=== PATIENT | male | born 1965 | race Caucasian/White ===

== ENCOUNTER 2021-03-03 11:12 | Emergency (ER) | payer BC, OTHER ==
--- OUTSIDE RECORDS SUMMARY | 2021-03-03 11:14 | XMS REPORT | Continuity of Care Document ---
:1965 Author Organization [facility] t Address [address] [place] [address] Care Team Providers Name Role Phone Unknown Attending Clinician Unavailable Ryan Dumont Attending Clinician Problems Condition Condition Condition Status Onset Resolution Last Treating Co mments Source Name Details Category Date Date Treatment Clinician Date Asthma Problem Active 2020-07-20 Memor ia (disorder) 21:20:07 l Asthma Ed (disorder) Active Problem 07/20/2020 [facility] Cervical Problem Active 2020-07-20 Mem oria radiculopa 21:20:07 l thy Cervical Reji n (disorder) radiculopa thy (disorder) Active Problem 07/20/2020 [facility] Hyperlipid Problem Active 2020-07-20 M emoria emia 21:20:07 l (disorder) Reji n Hyperlipid emia (disorder) Active Problem 07/20/2020 [facility] Hypertensi Problem Active 2020-07-20 M emoria ve 21:20:07 l disorder, [place] systemic Hypertensi arterial ve (disorder) disorder, systemic arterial (disorder) Active Problem 07/20/2020 [facility] Hypothyroi Problem Active 2020-07-20 M emoria dism 21:20:07 l (disorder) Reji n Hypothyroi dism (disorder) Active Problem 07/20/2020 [facility] 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) Active Problem 07/20/2020 [facility] Lumbar Problem Active 2020-07-20 Memor ia radiculopa 21:20:07 l thy Lumbar [place] (disorder) radiculopa thy (disorder) Active Problem 07/20/2020 [facility] Paresthesi Problem Active 2020-07-20 M emoria a 21:20:07 l (finding) Ed Paresthesi a (finding) Active Problem 07/20/2020 [facility] 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 Social History Social Habit Start Date Stop Date Quantity Comments Source Social History 2020-04-09 2020-04-09 [facility] 16:44:07 16:44:07 Medications Ordered Filled Start Stop Current Ordering Indication Dosage Frequency Signature Comments Components Source Medication Medication Date Date Medication? Clinician (SIG) Name Name gabapentin Yes 300 mg = 1 M emoria 300 MG Oral 8-14 cap, PO, l Capsule 16:18: BID, # 60 Julia nn 00 cap, 3 Refill(s), Pharmacy: [id number], 165.1, cm, 04/09/20 11:31:00 CDT, Height, 72.273, kg, 04/09/20 11:31:00 CDT, Weight Advil Yes 800 mg, Memoria 7-08 PO, TID, 0 l 16:31: Refill(s) atorvastati No 80 mg, PO, Memoria n 7-08 Daily, 0 l 15:52: Refill(s) Hydrochloro 2019- Yes 25 mg, PO, Memoria thiazide 7-08 Daily, 0 l 15:52: Refill(s) Losartan 2019- Yes See Memoria 7-08 Instructio l 15:52: ns, losartan / potassium 100 mg PO Daily, 0 Refill(s) Thyroxine Yes 50 Memoria 7-08 microgram, l 15:52: PO, Daily, 0 Refill(s) Ranitidine Yes 150 mg = 1 M emoria 150 MG Oral 04-09 cap, PO, l Capsule 15:52: PRN, 0 00 Refill(s) CoQ10 2019-0 No PO, Daily, Memori a 04-09 0 l 15:52: Refill(s) [place] 00 Aspirin Yes 81 mg, PO, [place] roland 7-08 Daily, 0 l 15:52: Refill(s) Ed 00 meloxicam No 15 mg, PO, Me moria 7-08 Daily, 0 l 15:52: Refill(s) Ed 00 Vital Signs Vital Name Observation Time Observation Value Comments Source Systolic (mm Hg) 2020-05-28 18:14:00 [facility] rial Ed Diastolic (mm Hg) 2020-05-28 18:14:00 Mem orial [place] Heart Rate 2020-05-28 18:14:00 [facility] Respitory Rate 2020-05-28 18:14:00 Memori al [place] Height 2020-05-28 18:14:00 167.64 cm [facility] [place] Weight 2020-05-28 18:14:00 [facility] [place] BMI Calculated 2020-05-28 18:14:00 Memori al [place] Systolic (mm Hg) 2020-04-09 16:20:00 [facility] rial [place] Diastolic (mm Hg) 2020-04-09 16:20:00 Mem orial Ed Heart Rate 2020-04-09 16:20:00 [facility] [place] Respitory Rate 2020-04-09 16:20:00 Memori al [place] Temperature Oral (F) 2020-04-09 16:20:00 98.3 F [facility] Height 2020-04-09 16:20:00 165.1 cm [facility] [place] Weight 2020-04-09 16:20:00 [facility] [place] BMI Calculated 2020-04-09 16:20:00 Memori al Ed Procedures This patient has no known procedures. Encounters Start End Encounter Admission Attending Care Care Encounter Source Date/Time Date/Time Type Type Clinicians Facility Department ID 2020-10-28 2020-10-28 Hospital Unknown, [facility] [id number] 16:00:00 23:59:00 Encounter Attending Christina [id number] [place] [id number] [facility] [id number] 2020-07-18 2020-07-18 Outpatient Julia, MISCHER MHMISCHER [id number] 09:45:00 09:45:00 Kevin 04 Ryan 2020-05-28 2020-05-28 Outpatient NAYE DumontMISCHER MHMISCHER [id number] 13:00:00 23:59:59 Kevin 03 Ryan 2020-04-09 2020-04-09 Outpatient Julia MHMISCHER MHMISCHER [id number] 10:45:00 23:59:59 Kevin 02 Ryan 2020-04-09 2020-04-09 Outpatient Julia, MISCHER MHMISCHER [id number] 10:45:00 10:45:00 Kevin 00 Ryan 2020-04-09 2020-04-09 Outpatient Julia, MISCHER MHMISCHER [id number] 10:45:00 10:45:00 Kevin Ryan Results This patient has no known results.
[2021-03-03] MEDS ORDERED: LORazepam 2 MG/ML VIAL ONE (17:43)
[2021-03-03] MEDS ORDERED: NA CHLORIDE 0.9% 500 ML ONE (17:44)
--- NOTE | 2021-03-03 18:10 | RAD REPORT ---
EXAM DESCRIPTION: CT - Head Brain Wo Cont - 03/03/2021 5:53 pm CLINICAL HISTORY: tremor COMPARISON: No comparisons TECHNIQUE: Axial 5 mm thick images of the head were obtained without IV contrast. All CT scans are performed using dose optimization technique as appropriate and may include automated exposure control or mA/KV adjustment according to patient size. FINDINGS: No intracranial hemorrhage, mass, edema or shift of mid-line structures. No acute infarcti on changes seen. No abnormal extra-axial fluid collections. Volume loss changes are evident greater t leiva expected for a patient this age. Ventricles are in proportion to the volume loss. Patient has a n ormal variant cavum vergae anomaly. Mastoid air cells are clear. Mucosal thickening is seen in the paranasal sinuses with no air-fluid le river seen. Right deviation the nasal septum present. No acute bony findings. IMPRESSION: No acute intracranial finding identifiable. Patient does show evidence for volume loss in the cerebral and cerebellar hemispheres greater than ex pected for a patient this age.
[2021-03-03 18:14] LABS: Absolute Lymphocytes (CBC) 0.3 K/uL (0.7-4.9); Basophils % 0.2 % (0-1.3); Hematocrit 45.4 % (39.6-49.0); MPV 8.8 fL (7.6-11.3); RBC Red Blood Cell Count 4.57 M/uL (4.33-5.43)
[2021-03-03 18:30] LABS: Protime INR 1.09
[2021-03-03] MEDS ORDERED: FOLIC ACID 1 MG, MULTIVITAMINS INJ 10 ML, THIAMINE HCL 100 MG in NA CHLORIDE 0.9% 1,000 ML IV ONE (18:30)
[2021-03-03 18:33] LABS: ALT/SGPT 160 U/L (12-78); AST/SGOT 119 U/L (15-37); Albumin 4.5 g/dL (3.4-5.0); Alkaline Phosphatase 97 U/L (45-117); BUN Blood Urea Nitrogen 10 mg/dL (7-18); Bicarbonate 25 mmol/L (21-32); Bilirubin Direct 0.5 mg/dL (0-0.2); Bilirubin Total 1.6 mg/dL (0.2-1.0); Glucose Level 130 mg/dL (74-106); Magnesium 1.8 mg/dL (1.8-2.4); NT PRO-BNP 71 pg/mL (<125); Protein, Total 8.8 g/dL (6.4-8.2); Sodium Level 137 mmol/L (136-145); T3 Free 3.31 pg/mL (2.18-3.98); Troponin (Emerg Dept Use Only) < 0.02 ng/mL (0.0-0.045)
--- NOTE | 2021-03-03 19:02 | RAD REPORT ---
EXAM DESCRIPTION: RAD - Chest Single View - 03/03/2021 6:17 pm CLINICAL HISTORY: tremor, shortness of breath COMPARISON: August 2008 TECHNIQUE: AP portable chest image was obtained 03/03/2021 6:17 pm . FINDINGS: Lungs are clear. Heart and vasculature are normal. No measurable pleural effusion and no p neumothorax. No acute bony abnormality seen. No acute aortic findings suspected. IMPRESSION: No acute cardiopulmonary process. No significant change from comparison study.
--- NOTE | 2021-03-03 20:08 | RAD REPORT ---
EXAM DESCRIPTION: US - Abdomen Exam Limited - 03/03/2021 7:52 pm CLINICAL HISTORY: elevated liver enzymes COMPARISON: None FINDINGS: No gallstones, sludge or other abnormalities within the gallbladder lumen. There is no wal l thickening or pericholecystic fluid. Common bile duct is upper normal. No intrahepatic dilatation and no duct stone seen. Liver is normal size at 15 cm. Fatty infiltration pattern is present with no focal liver lesion ident ifiable. Doppler evaluation shows no portal vein abnormality. IMPRESSION: Normal gallbladder and biliary tree ultrasound. Diffuse fatty infiltration of a normal size liver. No focal liver abnormality.
[2021-03-03 20:25] LABS: Platelet Estimate DECR; White Blood Cell Scan OK (OK)
[2021-03-03 20:26] LABS: Blood Morphology Comment NOT SEEN (NOT SEEN)
--- NOTE | 2021-03-03 20:28 | EDPHYS ---
Physician Documentation [facility] Name: Petar Russo Age: 55 yrs Sex: Male : 1965 Arrival Date: 03/03/2021 Time: 11:15 Bed 16 Private MD: ED Physician Niko Ayala HPI: 03/03 17:20 This 55 yrs old Male presents to ER via Wheelchair with complaints of Shaking.cp Historical: - Allergies: 11:39 No Known Allergies; jl7 - Home Meds: 11:39 None [Active]; jl7 - PMHx: 11:39 Hypertension; High Cholesterol; Hypothyroidism; jl7 - Immunization history:: Adult Immunizations unknown. - Social history:: Smoking status: Patient denies any tobacco usage or history of. Exam: 17:40 ECG was reviewed by the Attending Physician. Vital Signs: 11:35 BP 173 / 98; Pulse 118; Resp 17 S; Temp 98.3(O); Pulse Ox 100% on R/A; Weight 70.31 kg; jl7 Height 5 ft. 5 in. (165.10 cm); Pain 0/10; 17:17 BP 180 / 100; Pulse 98; Resp 18; Pulse Ox 100% on R/A; vg1 18:16 BP 176 / 94; Pulse 84; Resp 12; Pulse Ox 100% on R/A; vg1 21:16 BP 183 / 101; Pulse 88; Resp 16; Pulse Ox 99% on R/A; jm8 11:35 Body Mass Index 25.79 (70.31 kg, 165.10 cm) jl7 MDM: 17:00 Patient medically screened. [facility] 20:02 ED course: Discussed results of labs, EKG and radiology studies. Patient declined cp admission at this time for alcohol withdrawals and requests discharge to home to continue to consume alcohol. 03/03 17:14 Order name: Basic Metabolic Panel; Complete Time: 19:09 03/03 18:54 Interpretation: Normal except: GLUC 130. 03/03 17:14 Order name: CBC with Diff; Complete Time: 20:36 03/03 18:53 Interpretation: Normal except: PLT 76; LU% 83.6; LYM% 5.0; LYMA 0.3. 03/03 17:14 Order name: LFT's; Complete Time: 19:09 cp 06/01 18:54 Interpretation: AST 119; ALT 160; BILIT 1.6; BILID 0.5; TP 8.8; GLOB 4.3; A/G 1.0. cp 06/01 17:14 Order name: Magnesium; Complete Time: 19:09 cp 06/01 17:14 Order name: NT PRO-BNP; Complete Time: 19:09 cp 06/ 17:14 Order name: PT-INR; Complete Time: 18:53 cp / 18:55 Interpretation: Abnormal: PT 12.6. cp 06/ 17:14 Order name: Troponin (emerg Dept Use Only); Complete Time: 19:09 cp / 18:55 Interpretation: TROPED < 0.02; Reviewed. cp / 17:14 Order name: XRAY Chest (1 view); Complete Time: 19:09 cp / 17:14 Order name: CT Head Brain wo Cont; Complete Time: 18:25 cp / 18:26 Interpretation: Report reviewed. cp / 17:14 Order name: TSH; Complete Time: 19:09 cp / 18:53 Interpretation: Abnormal: TSH 5.940. cp 06/ 17:14 Order name: T3 Free; Complete Time: 19:09 cp / 17:14 Order name: ETOH Level; Complete Time: 18:25 cp /01 18:55 Interpretation: ETOH < 10; Reviewed. cp 03/03 18:38 Order name: T4 Free; Complete Time: 19:09 EDMS /01 20:25 Order name: CBC Smear Scan; Complete Time: 20:36 EDMS /01 17:14 Order name: EKG; Complete Time: 17:15 cp /01 17:14 Order name: Cardiac monitoring; Complete Time: 17:48 cp 06/01 17:14 Order name: EKG - Nurse/Tech; Complete Time: 17:48 cp /01 17:14 Order name: IV Saline Lock; Complete Time: 17:48 cp /01 17:14 Order name: Labs collected and sent; Complete Time: 17:48 cp /01 17:14 Order name: O2 Per Protocol; Complete Time: 17:26 cp /01 17:14 Order name: O2 Sat Monitoring; Complete Time: 17:26 cp / 19:12 Order name: US Abdomen Limited: gallbladder/liver; Complete Time: 20:14 cp 03/03 20:14 Interpretation: Report reviewed. cp EC:40 Rate is 81 beats/min. Rhythm is regular. NE interval is normal. QRS interval is normal. cp QT interval is normal. T waves are Inverted in lead aVR. Interpreted by me. Reviewed by me. Administered Medications: 17:47 Drug: NS 0.9% 500 ml Route: IV; Rate: bolus; Site: left antecubital; vg1 17:47 Drug: Ativan (LORazepam) 0.5 mg Route: IVP; Site: left antecubital; vg1 18:57 Follow up: Response: No adverse reaction vg1 18:10 Drug: Banana Bag - (NS 0.9% 1000 ml, foLIC Acid 1 mg, Thiamine 100 mg, Multivitamin 1 vg1 amp) Route: IV; Rate: 200 ml/hr; Site: left antecubital; 21:11 Drug: Labetalol 10 mg Route: IVP; Infused Over: 2 mins; Site: left antecubital; jm8 21:15 Follow up: Response: No adverse reaction; Medication administered at discharge. jm8 Disposition: 03/03/21 20:28 Discharged to Home. Impression: Alcohol dependence with withdrawal, unspecified, Hypertensive heart disease, Hypothyroidism, unspecified. - Condition is Stable. - Discharge Instructions: Chemical Dependency, Alcohol Withdrawal, Hypertension, Hypothyroidism, Alcohol Abuse and Nutrition, Aspirin and Your Heart, Managing Your Hypertension. - Medication Reconciliation Form, Thank You Letter, Antibiotic Education, Prescription Opioid Use form. - Follow up: Private Physician; When: 1 - 2 days; Reason: Recheck today's complaints. - Problem is new. - Symptoms have improved. Signatures: Dispatcher [employer] EDMS Niko Ayala MD MD cha Page, Corey, PA PA cp David Cummins RN RN jl7 Helen Hensley RN RN vg1 Hema Greer RN RN jm8 Corrections: (The following items were deleted from the chart) 18:53 18:53 Normal except: PLT 76; LU% 83.6; LYM% 5.0. cp cp 18:54 18:54 AST 119; ALT 160; BILIT 1.6; BILID 0.5; TP 8.8; GLOB 4.3. cp cp 21:22 20:28 03/03/2021 20:28 Discharged to Home. Impression: Alcohol dependence with jm8 withdrawal, unspecified; Hypertensive heart disease; Hypothyroidism, unspecified. Condition is Stable. Forms are Medication Reconciliation Form, Thank You Letter, Antibiotic Education, Prescription Opioid Use. Follow up: Private Physician; When: 1 - 2 days; Reason: Recheck today's complaints. Problem is new. Symptoms have improved. cp
--- NOTE | 2021-03-03 20:28 | ER ---
Nurse's Notes [facility] Name: Petar Russo Age: 55 yrs Sex: Male : 1965 Arrival Date: 03/03/2021 Time: 11:15 Bed 16 Private MD: Diagnosis: Alcohol dependence with withdrawal, unspecified;Hypertensive heart disease;Hypothyroidism, unspecified Presentation: 03/03 11:35 Chief complaint: Spouse and/or significant other states: He's been shaking since 0700 jl7 this morning. Pt denies CP, denies shortness of breath, denies fever. Shaking to bilateral arm noted. Coronavirus screen: Client denies travel out of the [place] in the last 14 days. At this time, the client does not indicate any symptoms associated with coronavirus-19. Ebola Screen: No symptoms or risks identified at this time. Initial Sepsis Screen: Does the patient meet any 2 criteria? No. Patient's initial sepsis screen is negative. Does the patient have a suspected source of infection? No. Patient's initial sepsis screen is negative. Risk Assessment: Do you want to hurt yourself or someone else? Patient reports no desire to harm self or others. Onset of symptoms was March 03, 2021 at 07:00. Care prior to arrival: None. 11:35 Method Of Arrival: Wheelchair jl 11:35 Acuity: ABDIEL 2 jl7 Historical: - Allergies: 11:39 No Known Allergies; jl7 - Home Meds: 11:39 None [Active]; jl7 - PMHx: 11:39 Hypertension; High Cholesterol; Hypothyroidism; jl7 - Immunization history:: Adult Immunizations unknown. - Social history:: Smoking status: Patient denies any tobacco usage or history of. Screenin:16 Abuse screen: Denies threats or abuse. Nutritional screening: No deficits noted. vg1 Tuberculosis screening: No symptoms or risk factors identified. Fall Risk No fall in past 12 months (0 pts). No secondary diagnosis (0 pts). IV access (20 points). Ambulatory Aid- None/Bed Rest/Nurse Assist (0 pts). Gait- Normal/Bed Rest/Wheelchair (0 pts) Mental Status- Oriented to own ability (0 pts). Total Diaz Fall Scale indicates No Risk (0-24 pts). Assessment: 17:15 General: Appears in no apparent distress. comfortable, Behavior is calm, cooperative, vg1 restless. Pain: Denies pain. Neuro: Level of Consciousness is awake, alert, obeys commands, Oriented to person, place, time, situation. Cardiovascular: Patient's skin is warm and dry. Respiratory: Airway is patent Respiratory effort is even, unlabored. GI: Patient currently denies diarrhea, nausea, vomiting. : No signs and/or symptoms were reported regarding the genitourinary system. EENT: No signs and/or symptoms were reported regarding the EENT system. Derm: Skin is intact, is healthy with good turgor. Musculoskeletal: Circulation, motion, and sensation intact. 18:17 Reassessment: Patient appears in no apparent distress at this time. Patient and/or vg1 family updated on plan of care and expected duration. Pain level reassessed. Patient is alert, oriented x 3, equal unlabored respirations, skin warm/dry/pink. Vital Signs: 11:35 BP 173 / 98; Pulse 118; Resp 17 S; Temp 98.3(O); Pulse Ox 100% on R/A; Weight 70.31 kg; jl7 Height 5 ft. 5 in. (165.10 cm); Pain 0/10; 17:17 BP 180 / 100; Pulse 98; Resp 18; Pulse Ox 100% on R/A; vg1 18:16 BP 176 / 94; Pulse 84; Resp 12; Pulse Ox 100% on R/A; vg1 21:16 BP 183 / 101; Pulse 88; Resp 16; Pulse Ox 99% on R/A; jm8 11:35 Body Mass Index 25.79 (70.31 kg, 165.10 cm) jl7 ED Course: 11:15 Patient arrived in ED. ds1 11:38 Triage completed. jl7 11:39 Arm band placed on right wrist. jl7 16:58 Helen Hensley, AVIS is Primary Nurse. vg1 17:00 Niko Guthrie PA is PHCP. cp 17:00 Niko Ayala MD is Attending Physician. cp 17:17 Patient has correct armband on for positive identification. Placed in gown. Bed in low vg1 position. Call light in reach. Side rails up X2. Adult w/ patient. 17:41 Initial lab(s) drawn, by me, sent to lab. Inserted saline lock: 22 gauge in left vg1 antecubital area, using aseptic technique. Blood collected. 17:53 CT Head Brain wo Cont In Process Unspecified. EDMS 18:17 XRAY Chest (1 view) In Process Unspecified. EDMS 19:52 US Abdomen Limited: gallbladder/liver In Process Unspecified. EDMS 21:16 No provider procedures requiring assistance completed. IV discontinued, intact, jm8 bleeding controlled. Administered Medications: 17:47 Drug: NS 0.9% 500 ml Route: IV; Rate: bolus; Site: left antecubital; vg1 21:23 Follow up: IV Status: Completed infusion jm8 17:47 Drug: Ativan (LORazepam) 0.5 mg Route: IVP; Site: left antecubital; vg1 18:57 Follow up: Response: No adverse reaction vg1 18:10 Drug: Banana Bag - (NS 0.9% 1000 ml, foLIC Acid 1 mg, Thiamine 100 mg, Multivitamin 1 vg1 amp) Route: IV; Rate: 200 ml/hr; Site: left antecubital; 21:23 Follow up: IV Status: Completed infusion jm8 21:11 Drug: Labetalol 10 mg Route: IVP; Infused Over: 2 mins; Site: left antecubital; jm8 21:15 Follow up: Response: No adverse reaction; Medication administered at discharge. jm8 Outcome: 20:28 Discharge ordered by . david 21:16 Discharged to home ambulatory, with family. jm8 21:16 Condition: good 21:16 Discharge instructions given to patient, Instructed on discharge instructions, follow up and referral plans. medication usage, Demonstrated understanding of instructions, follow-up care, medications. 21:22 Patient left the ED. jm8 Signatures: Dispatcher [employer] EDDC GarciaMckenzie ds1 Niko Guthrie PA PA cp Leal, Jahala RN RN jl7 Helen Hensley RN RN vg1 Hema Greer RN RN jm8
[2021-03-03] MEDS ORDERED: LABETALOL HCL 100 MG/20 ML ONE ×2 (21:28→21:30)
[2021-03-03 21:29] VITALS: TEMP 98.3
[2021-03-03 21:33] VITALS: BP 183/101; O2SAT 99
--- NOTE | 2021-03-04 11:56 | EKG ---
Test Date: 2021-03-03 Test Time: 17:32:45 Paraffin Machine Operator: SAWYER MEASUREMENT RESULTS: Intervals: Rate: 81 SC: 156 QRSD: 88 QT: 388 QTc: 450 [place]: P: 52 SC: 156 QRS: 50 T: 37 INTERPRETIVE STATEMENTS: Normal sinus rhythm Normal ECG Compared to ECG 08/12/2008 07:20:26 No significant changes Electronically Signed On 03-04-21 11:53:50 CDT by Rey Parker
== END 2021-03-03 21:22 | disposition home or self-care (01) ==
LOC: ER 11:12
DX: F11.23 Opioid dependence with withdrawal (principal); E03.9 Hypothyroidism, unspecified; I11.9 Hypertensive heart disease without heart failure; E78.00 Pure hypercholesterolemia, unspecified
CPT/HCPCS: 96365; 93005; 85025; 80048; 36415; 80320; 83735; 85610; 80076; 84443; 84484; 84481; 84439; 83880; 70450; 71045; 76705; 96375; 99284; 96366; J3411; J7040; J7030